=== PATIENT | female | born 1985 | race Caucasian/White ===

== ENCOUNTER 2017-04-27 01:35 | Emergency (ER) | payer SELFPAY ==
[~2017-04-27] VITALS: Ht 157.5 cm; Wt 94.0 kg
[2017-04-27 01:35] VITALS: BP 154/111
[~2017-04-27 01:35] MED LIST: ALBU18HF INH; BENZ200C40 PO; IBUP-1222 PO; NITR100C PO; SULF1TAB24 PO
[2017-04-27] MEDS ORDERED: CLINDAMYCIN PMX 600MG/50ML 0 ML ONE (02:51)
[2017-04-27] MEDS ORDERED: CLINDAMYCIN 150 MG/ML, 6ML IM ONE (03:00)
== END 2017-04-27 04:05 | disposition home or self-care (01) ==
LOC: ED 03:50
DX: L03.011 Cellulitis of right finger (principal); J45.909 Unspecified asthma, uncomplicated
CPT/HCPCS: 96372

== ENCOUNTER 2019-11-03 00:43 | Emergency (ER) | payer SELFPAY ==
[~2019-11-03] VITALS: Ht 157.5 cm; Wt 87.3 kg
[~2019-11-03 00:43] MED LIST changes: -BENZ200C40 PO; +BENZ200C48 PO
[2019-11-03 00:46] VITALS: BP 157/102
[2019-11-03] MEDS ORDERED: OXYcodone/APAP 5/325MG TABLET ONE (01:24)
--- NOTE | 2019-11-03 01:29 | NUR ---
BREAK RN: PT. REPORTS SHE HAS TAKEN PERCOCET IN THE PAST AND WOULD LIKE TO LEAVE PRIOR TO REPEAT VITAL SIGNS. AT BS TO DRIVE PT. HOME.
[2019-11-03] MEDS ORDERED: OXYcodone/APAP 5/325MG TABLET PO ONE (01:30)
== END 2019-11-03 01:33 | disposition home or self-care (01) ==
LOC: ED 00:55
DX: H60.92 Unspecified otitis externa, left ear (principal); J45.909 Unspecified asthma, uncomplicated; Z87.891 Personal history of nicotine dependence; Z98.51 Tubal ligation status
CPT/HCPCS: 99283

== ENCOUNTER 2021-03-27 15:32 | Emergency (ER) | payer SELFPAY ==
[~2021-03-27] VITALS: Ht 157.5 cm; Wt 89.2 kg
[~2021-03-27 15:32] MED LIST changes: +SULF-23 PO; -SULF1TAB24 PO
[2021-03-27 15:34] VITALS: BP 139/83
== END 2021-03-27 16:28 | disposition home or self-care (01) ==
LOC: ED 16:20
DX: L03.116 Cellulitis of left lower limb (principal); B35.4 Tinea corporis; J45.909 Unspecified asthma, uncomplicated
CPT/HCPCS: 99283

== ENCOUNTER 2021-04-09 01:15 | Emergency (ER) | payer SELFPAY ==
[~2021-04-09] VITALS: Ht 157.5 cm; Wt 85.4 kg
--- NOTE | 2021-04-09 01:37 | NUR ---
PT AMBULATED TO ROOM. NO ACUTE DISTRESS. URINE CUP PROVIDED TO PT FOR A SAMPLE. FINAL COAT SPRAYER TO BEDSIDE TO DRAW BLOOD.
[2021-04-09 01:47] LABS: BASOPHILS % (AUTO) 1 % (0-1); EOSINOPHILS % (AUTO) 6 % (1-7); LYMPHOCYTES % (AUTO) 31 % (22-44); MEAN CORPUSCULAR HEMOGLOBIN 30.4 pg (27.0-34.8); MEAN CORPUSCULAR HGB CONC 33.8 g/dL (32.4-35.8); MEAN PLATELET VOLUME 7.8 fL (7.4-10.4); MONOCYTES % (AUTO) 8 % (2-9); NEUTROPHILS % (AUTO) 55 % (42-75); PLATELET COUNT 331 x10^3/uL (130-400); RED BLOOD COUNT 4.46 x10^6/uL (3.82-5.3); RED CELL DISTRIBUTION WIDTH 13.3 % (9.6-15.2)
[2021-04-09 01:48] LABS: MD NO
[2021-04-09 01:56] LABS: ALANINE AMINOTRANSFERASE 23 U/L (12-78); ALBUMIN 3.1 g/dL (3.4-5.0); ANION GAP 5 mmol/L (5-15); CALCIUM 8.3 mg/dL (8.5-10.1); CHLORIDE 107 mmol/L (98-107); CREATININE 0.87 mg/dL (0.55-1.02)
[2021-04-09 02:01] LABS: ALKALINE PHOSPHATASE 70 U/L (45-117); BILIRUBIN,TOTAL 0.3 mg/dL (0.2-1.0); TOTAL PROTEIN 6.7 g/dL (6.4-8.2)
[2021-04-09 02:23] VITALS: BP 158/68
--- NOTE | 2021-04-09 02:39 | NUR ---
F/U AND D/C INSTRUCTIONS AND PRESCRIPTIONS GIVEN TO PT AND SHE V/U.
== END 2021-04-09 02:42 | disposition home or self-care (01) ==
LOC: ED 01:45
DX: K29.00 Acute gastritis without bleeding (principal); R10.13 Epigastric pain; R11.10 Vomiting, unspecified
CPT/HCPCS: 36415; 80053; 83690; 84703; 85025; 99283